=== PATIENT | male | born 1975 | race Caucasian/White ===

== ENCOUNTER 2022-02-01 09:25 | Emergency (ER) | payer SELFPAY ==
[2022-02-01] MEDS ORDERED: Aspirin 81 MG Tab.Chew PO ONE (09:51)
[2022-02-01 09:59] LABS: PTT,PARTIAL THROMBOPLSTIN TIME 23.9 SEC (23.2-32.3)
[2022-02-01 10:04] LABS: CHLORIDE,CL 104 mEq/L (98-106); SODIUM,NA 136 mEq/L (136-145)
[2022-02-01] MEDS ORDERED: LORazepam 2 MG/ML Syringe IVPUSH ONE (10:21)
[2022-02-01] MEDS ORDERED: Haloperidol Lactate 5 MG/ML SDV IVPUSH ONE (10:21)
[2022-02-01 10:45] LABS: AMPHETAMINES,URINE NEGATIVE (NEGATIVE); BARBITURATES,URINE NEGATIVE (NEGATIVE); BENZODIAZEPINE,URINE NEGATIVE (NEGATIVE); MDMA (ECSTASY), URINE NEGATIVE (NEGATIVE); METHADONE,URINE NEGATIVE (NEGATIVE); METHAMPHETAMINES,URINE NEGATIVE (NEGATIVE); OPIATES,URINE NEGATIVE (NEGATIVE); OXYCODONE,URINE NEGATIVE (NEGATIVE); PHENCYCLIDINE,URINE NEGATIVE (NEGATIVE); TCA,URINE NEGATIVE (NEGATIVE)
[2022-02-01] MEDS ORDERED: Haloperidol Lactate 5 MG/ML SDV IM ONE (12:54)
== END 2022-02-01 13:53 ==
LOC: CC.ED 09:25
DX: T75.4XXA Electrocution, initial encounter (principal); R07.89 Other chest pain; F22 Delusional disorders; Z20.822 Contact with and (suspected) exposure to COVID-19
CPT/HCPCS: 36415; 70450; 71046; 80053; 80305-QW; 81003; 82550; 83605; 83615; 83690; 84484; 85025; 85379; 85610; 85730; 86140; 93005; 96372; 96374; 99284; 99285-25; A9270-GY; J1630; J2060; U0002